=== PATIENT | female | born 1995 | race African-American/Black ===

== ENCOUNTER → 2019-11-19 08:24 | Outpatient (BNVA) | payer MEDICAID, SELFPAY | PROVIDERS: PCP Pediatrics; Referring Provider Pediatrics; Visit Provider Internal Medicine Gastroenterology | DX: R11.2 Nausea with vomiting, unspecified (principal); R19.4 Change in bowel habit | CPT/HCPCS: 99213 ==

== ENCOUNTER 2019-12-29 11:00 | Outpatient (RCR) | payer MEDICAID, SELFPAY ==
--- NOTE | 2020-01-26 13:26 | MHC.PT.DC ---
[facility] [place] [facility] [place] [facility] [place] [facility] [address] Maryjo Cortez [address] [phone] F: [phone] F: [phone] F: [phone] F: [phone] Physical Therapy Discharge Report Diagnosis: R knee pain Date of Surgery: NA Date of Evaluation: 11/04/19 Date of Discharge: 01/26/20 Treatments to Date: 4 Cancellations to Date: 2 No Shows to Date: 0 Discharge Status: Discharge Summary: Dispensed HEP importance of performing daily at the last tx session. Notable hip weakness, HS tightness. She has normal patella mobility and knee ROM. Patient reporting that she does not follow HEP at home so minimal changes noted. She came for 4 visits and cancelled additional. She was educated often on the importance of HEP in order to improve symptoms however little carryover was noted and minimal attendance to PT appointments. Kept chart open for 30 days prior to DC. DC to HEP at this time. Electronically signed by: Sari Emerson, PT Please sign and return to therapist. Thank you for your referral.
== END 2020-01-26 13:27 | disposition home or self-care (01) ==
LOC: HO.PTCHIC 11:00
PROVIDERS: PCP Pediatrics; Visit Provider Physician Assistant
DX: M22.2X1 Patellofemoral disorders, right knee (principal)
CPT/HCPCS: 97110

== ENCOUNTER 2020-01-13 10:25 | Day surgery (SDC) | payer MEDICAID, SELFPAY ==
[2020-01-10 09:53] VITALS: BMI 18.4
--- NOTE | 2020-01-12 10:13 | P.CONAN_ITS ---
HPI - Anesthesia Eval Consult details Narrative: 24yo F for Upper Endoscopy and Colonoscopy [facility] Past Medical History Medical History (Updated 01/25/20 @ 09:58 by Shady Irby MD) Nausea & vomiting Family History Family History (Updated 01/25/20 @ 09:08 by Pearl Erickson MA) Father Alive and well Mother Alive and well Surgical History Surgical History (Updated 01/25/20 @ 09:07 by Pearl Erickson MA) History of appendectomy History of colonoscopy Hx of endoscopy Social History Social History (Updated 01/25/20 @ 09:08 by Pearl Erickson MA) Alcohol intake: never Smoking Status: Never smoker Substance Use Type: Marijuana Meds Allergies Allergy/AdvReac Type Severity Reaction Status Date / Time No Known Allergies Allergy Verified 01/13/20 10:48 [No Known Allergies*] Home Medications Medication Instructions Recorded Confirmed Type famotidine 20 mg tablet 20 mg PO BEDTIME 11/19/19 01/10/20 History ondansetron 4 mg disintegrating 4 mg PO Q8H 11/19/19 01/10/20 History tablet Exam Exam Date and Time: January 12, 2020 1013 Height,Weight and Vital Signs: Height 5 ft 7 in Weight 53.524 kg Pertinent Lab Results Pertinent Lab Results: Laboratory Tests 08/27/19 08/27/19 09:56 09:56 WBC 3.9 L Hgb 12.4 Hct 37.9 Plt Count 211 Sodium 138 Potassium 3.8 Chloride 107 BUN 7 L Creatinine 0.75 Assessment and Plan Assessment Anesthesia Assessment: Chart Reviewed
[2020-01-13 10:47] VITALS: BP 106/62; PULSE 70; RESP 18; TEMP 36.6; O2SAT 99
[2020-01-13] MEDS: Lactated Ringers 1,000 ML 100 ML IVCONT (10:50)
[2020-01-13 10:53] LABS: UPreg QC Valid YES; Urine Pregnancy NEGATIVE (NEGATIVE)
--- NOTE | 2020-01-13 11:56 | HO.ANESPROP2 ---
[facility]LY [facility] Past Medical History Medical History Nausea & vomiting Family History Family History Father No problems noted. Mother No problems noted. Surgical History Surgical History History of appendectomy Social History Social History Alcohol intake: never Smoking Status: Never smoker Use of substances other than those prescribed or required for medical reasons: Yes Substance Use Type: Marijuana Substance Use Frequency: Occasionally Advance Directives: No Advance Directives Information Provided: No Advance Directives on File: No Meds Allergies Allergy/AdvReac Type Severity Reaction Status Date / Time No Known Allergies Allergy Verified 01/13/20 10:48 [No Known Allergies*] Home Medications Medication Instructions Recorded Confirmed Type famotidine 20 mg tablet 20 mg PO BEDTIME 11/19/19 01/10/20 History ondansetron 4 mg disintegrating 4 mg PO Q8H 11/19/19 01/10/20 History tablet Exam Exam Date and Time: January 13, 2020 1156 Height,Weight and Vital Signs: Height 5 ft 7 in Weight 53.524 kg Last Vital Signs Temp 98 F 01/13/20 10:47 Pulse 70 01/13/20 10:47 Resp 18 01/13/20 10:47 BP 106/62 01/13/20 10:47 Pulse Ox 99 01/13/20 10:47 Pertinent Lab Results Pertinent Lab Results: Laboratory Tests 01/13/20 10:31 Urine Test NEGATIVE Airway Mallampati Class: I TM Dist: >3cm Neck ROM: Full Loose/Missing/Broken Teeth: No Heart: RRR Lungs: CTA Assessment and Plan Assessment Anesthesia Assessment: Anesthesia Plan Discussed and Chart Reviewed Final Anesthetic Review NPO: Yes ASA Class: I Final Preanesthetic Review: Meds/Allgs Chart Reviewed, Consent Obtained/Reviewed and Anes Risks/Benef Reviewed Patient Risk: Low Procedure Risk: Intermediate Anesthetic Plan Anesthetic Plan: MAC: Disposition: Standard PACU
--- NOTE | 2020-01-13 12:06 | MHC.SHP ---
Pre-Procedural Eval Section B Chief Complaint: Nausea with Vomiting, Change in Bowl Habits Relevant Family History (Specify if Yes): No Relevant Social History: Other (specify) (THC use) Present Medications: see Short Stay Collaborative assessment Medical History: No relevant PMH History of Previous Operations: Relevant previous surgery/procedure and date(s) (appendectomy) Allergies: Allergies Allergy/AdvReac Type Severity Reaction Status Date / Time No Known Allergies Allergy Verified 01/13/20 10:48 [No Known Allergies*] Review of Systems Sugical H&P ROS: Negative: Constitution, Cardiovascular, Respiratory, Neurological, Psychiatric, Hem-Onc, Allergic/Immunologic, Gastrointestinal, Genitourinary, Musculoskeletal, Integumentary, Endocrine and Eyes/Ears/Nose/Throat Exam Surgical H&P Exam: Normal: HEENT, Normal: Heart, Normal: Lungs, Normal: Extremities, Normal: Abdomen, Normal: Skin and Normal: Neurological Plan Diagnosis/Plan: Unchanged Patient has been examined and remains a candidate for the planned procedure
--- NOTE | 2020-01-13 12:58 | PM.OP ---
Brief Operative Note Date of Service: 01/13/20 Pre-op diagnosis: altered bowel habit, nausea Post-op diagnosis: same Procedure: see op note Surgeon: Shady Irby MD Anesthesia: MAC Estimated blood loss (mL): 0 Condition: stable Disposition: PACU
--- NOTE | 2020-01-13 12:59 | W.PM.OPN ---
Operative Note Operative Note Date of Service: 01/13/20 Narrative: Operative Information Procedure Description: EGD, Colonoscopy FLEXIBLE TRANSORAL UPPER GASTROINTESTINAL ENDOSCOPY AND COLONOSCOPY PROCEDURE NOTE UPPER ENDOSCOPY Consent: Indications for the procedure and potential complications of bleeding, perforation, reaction to medications and missed diagnosis were discussed with the patient and informed consent was obtained. Instrument: Olympus GIF H 190 J mid size upper endoscope Monitoring: Vital signs and clinical assessment, continuous EKG monitoring, Pulse oximetry, Carbon Dioxide monitoring and blood pressure monitoring were done throughout the procedure. Procedure: The patient was placed in the left lateral decubitis position and pre-procedure medications were administered and a bite block was placed. The endoscope was inserted into the mouth and advanced under direct vision to the third part of duodenum. A careful inspection was made as the upper endoscope was withdrawn including a retroflexed examination of the proximal stomach; Findings and interventions are described below. Findings: Larynx:normal Esophagus: GE junction at 42 cm, diaphragm hiatus at 42 cm, mild LA grade A esophagitis, bx taken from random esophagus and GEJ in separate jars Stomach: mild patchy erythema. Biopsies were obtained. Grade 2 flap valve on retroflexed examination of the cardia. Duodenum: Normal bulb and descending duodenum, bx taken, mucosa easily traumatized Intervention: Biopsies as noted above COLONOSCOPY Instrument: Olympus variable stiffness pediatric scope 190L Colonoscopy Monitoring: Vital signs and clinical assessment, continuous EKG monitoring, Pulse oximetry, Carbon Dioxide monitoring and blood pressure monitoring were done throughout the procedure. Colon withdrawal time was 15 minutes. Procedure: The patient was placed in the left lateral decubitis position and pre-procedure medications were administered. After a digital rectal examination of the ano-rectum, the video colonoscope was inserted into the rectum and advanced through the colon to the cecum/TI. The colonoscope was slowly withdrawn in a retrograde panoramic fashion and the colon mucosa was carefully examined including a retroflexed view of the rectum. Findings and interventions are described below. Procedure Difficulty:easy Findings: Terminal Ileum-normal, bx taken Random bx taken from colon Cecum:normal, one biopsy site very easily traumatized with large defect and oozing, 2 clips used to close Ascending Colon: normal Transverse Colon -normal Descending Colon:normal Sigmoid Colon: normal Rectum: Retroflexion with small internal hemorrhoids, grade I Anorectum - normal Colon preparation: Almont Bowel Preparation Scale Right colon; 3 Transverse colon: 3 Left colon; 3 (0 = Unprepared colon segment with mucosa not seen due to solid stool that cannot be cleared. 1 = Portion of mucosa of the colon segment seen, but other areas of the colon segment not well seen due to staining, residual stool and/or opaque liquid. 2 = Minor amount of residual staining, small fragments of stool and/or opaque liquid, but mucosa of colon segment seen well. 3 = Entire mucosa of colon segment seen well with no residual staining, small fragments of stool or opaque liquid) Impression and Post Procedure Diagnosis: Endoscopy Findings: gastritis esophagitis Colonoscopy Findings: internal hemorrhoids easily traumatized mucosal tissue Plan: Await Pathology results Repeat Colonoscopy aged 45 years or earlier if clinically indicated High fiber diet leaflet avoid straining at stool, epsom salts and sitz bath, anusol supps or cream prn might switch to PPI see if get better control of sx might need to check for signs of symptoms of CTD like marfans, alesia danlos etc Above findings were reviewed with the patient and relevant handouts were provided if indicated.
[2020-01-13 13:05] VITALS: BP 90/48; PULSE 87; RESP 14; TEMP 36.6; O2SAT 100
[2020-01-13 13:20] VITALS: BP 98/55; PULSE 65; RESP 16; O2SAT 100
[2020-01-13 13:35] VITALS: BP 104/68; PULSE 69; RESP 16; TEMP 36.6; O2SAT 100
== END 2020-01-13 14:16 | disposition home or self-care (01) ==
PROVIDERS: Nurse Practitioner; PCP Pediatrics; Visit Provider Internal Medicine Gastroenterology
PROC: (CPT 45380; principal; 2020-01-13 11:40)
DX: R19.4 Change in bowel habit (principal); K64.0 First degree hemorrhoids; K29.50 Unspecified chronic gastritis without bleeding; K20.90 Esophagitis, unspecified without bleeding; K44.9 Diaphragmatic hernia without obstruction or gangrene; F12.90 Cannabis use, unspecified, uncomplicated; Z79.899 Other long term (current) drug therapy
CPT/HCPCS: 45380; 43239; 81025; 88305; 88342

== ENCOUNTER → 2020-01-25 09:05 | Outpatient (BNVA) | payer MEDICAID, SELFPAY | PROVIDERS: PCP Pediatrics; Referring Provider Pediatrics; Visit Provider Internal Medicine Gastroenterology | DX: Z76.89 Persons encountering health services in other specified circumstances (principal) ==

== ENCOUNTER → 2020-01-31 07:43 | Outpatient (REF) | payer MEDICAID, SELFPAY ==
--- NOTE | 2020-01-31 07:53 | NM_ITS ---
EXAMINATION: RADIONUCLIDE SOLID FOOD GASTRIC EMPTYING 4-HOUR STUDY CLINICAL INFORMATION: Early satiety. COMPARISON: No previous gastric emptying study is available for comparison. TECHNIQUE: A standard meal consisting of 4 oz of Egg Beaters brand equivalent tagged with 890 microcuries Tc-99m Sulfur Colloid, 8 oz water and 2 slices of toast with jelly was administered orally to the patient. Images were obtained using a dual head gamma camera in the anterior and posterior projections over of the stomach immediately post ingestion and at hourly intervals up to 4 hours post ingestion. The anterior and posterior counts at each time interval were averaged using the geometric mean and expressed as percentage of the immediate post ingestion counts. FINDINGS: There is good visualization of activity in the stomach immediately post ingestion. As the study progresses, there is good clearance of activity from the stomach and visualization of progressively increasing small bowel activity. By the end of the study, there is almost no retention noted in the stomach. Retention in the stomach at each time interval was: 1 hour 61% (normal 37%-90%) 2 hours 26% (normal 30%-60%) 3 hours 12% 4 hours 6% (normal 0%-10%) NM/NM gastric emptying study IMPRESSION: Normal 4-hour solid food gastric emptying study.
== END ==
LOC: HO.NUCMED 07:43
PROVIDERS: Visit Provider Internal Medicine Gastroenterology
DX: R68.81 Early satiety (principal); R11.2 Nausea with vomiting, unspecified
CPT/HCPCS: 78264; A9541

== ENCOUNTER → 2020-04-14 08:32 | Outpatient (BNVA) | payer MEDICAID, SELFPAY | PROVIDERS: PCP Pediatrics; Visit Provider Internal Medicine Gastroenterology | DX: Z13.89 Encounter for screening for other disorder (principal) | CPT/HCPCS: 99212 ==

== ENCOUNTER → 2020-04-28 08:41 | Outpatient (BNVA) | payer MEDICAID, SELFPAY | PROVIDERS: PCP Pediatrics; Visit Provider Internal Medicine Gastroenterology | DX: K29.70 Gastritis, unspecified, without bleeding (principal); K59.89 Other specified functional intestinal disorders | CPT/HCPCS: 91110 ==

== ENCOUNTER → 2020-07-14 10:26 | Outpatient (BNVA) | payer MEDICAID, SELFPAY | PROVIDERS: PCP Pediatrics; Visit Provider Internal Medicine Gastroenterology ==

== ENCOUNTER 2021-01-09 14:00 | Emergency (ER) | payer MEDICAID, SELFPAY ==
--- NOTE | ~2021-01-09 | CT_ITS ---
EXAMINATION: CT LUMBAR SPINE WITHOUT CONTRAST CLINICAL INFORMATION: Lower back/coccygeal pain. Fall while snowboarding. Pain in the lower back and right leg. COMPARISON: None available. TECHNIQUE: Multidetector helical imaging of the lumbar spine was obtained without intravenous contrast. Multiple axial reformats and coronal/sagittal reconstructions were created the technologist workstation for review. Hydroureter Dose Lowering DLP: 301 mGy-cm FINDINGS: Transitional vertebral anatomy. There is sacralization of L5 with fusion of the transverse processes with the sacral alae. Left convex curvature of the lumbar spine. Otherwise, normal anatomic alignment. No evidence of acute fracture or traumatic subluxation. The vertebral body heights are maintained. The intervertebral disc spaces are maintained. No suspicious lytic or sclerotic osseous lesions. No significant abnormalities of the paraspinal musculature. Small volume free fluid within the pelvis, within physiologic limits. Otherwise, limited evaluation of the intra-abdominal structures without significant abnormalities. The abdominal aorta is of normal contour and caliber. AXIAL SPINAL LEVELS: Normal annular contours. There is mild multilevel facet joint arthropathy. There is no neural foraminal stenosis. There is no demonstrated spinal canal stenosis. CT/CT lumbar spine wo con IMPRESSION: 1. Transitional vertebral anatomy. There is sacralization of L5. 2. No evidence of acute fracture or traumatic subluxation of the lumbar spine. 3. On this limited exam without intrathecal contrast, there is no demonstrated spinal canal stenosis or nerve root compression.
[2021-01-09 14:48] VITALS: BP 114/48; PULSE 89; RESP 16; TEMP 37.4; O2SAT 99; BMI 18.0
[2021-01-09] MEDS: Ibuprofen 800 MG TABLET PO (16:47)
[2021-01-09] MEDS: diazePAM 5 MG TABLET PO (16:47)
--- NOTE | 2021-01-09 17:15 | ED.BACK ---
HPI - Back Pain/Injury General Chief Complaint: Back Pain/Injury <SUSAN Newby - Last Filed: 01/09/21 18:12> Stated Complaint: low back pain <SUSAN Newby - Last Filed: 01/09/21 18:12> Time Seen by Provider: 01/09/21 16:27 <SUSAN Newby - Last Filed: 01/09/21 18:12> Source: patient and family <SUSAN Newby - Last Filed: 01/09/21 18:12> Mode of arrival: ambulatory <SUSAN Newby - Last Filed: 01/09/21 18:12> Limitations: no limitations <SUSAN Newby - Last Filed: 01/09/21 18:12> History of Present Illness HPI Narrative: 25-year-old female presenting to the ED with complaints of lower back pain/coccyx pain radiating to her right leg since February 2020 after she was snowboarding and she had a fall. Since then she has not been evaluated for this pain and is intermittently getting worse. She denies any fevers, chills, neck pain/stiffness, chest pain or shortness of breath, abdominal pain, dysuria, hematuria, abnormal vaginal discharge, weakness, saddle anesthesias, numbness or tingling, urinary/bowel incontinence or retention or any other symptoms complaints or concerns injuries at this time. <SUSAN Newby - Last Filed: 01/09/21 18:12> MD elicited complaint: back pain, back injury and fall <SUSAN eNwby - Last Filed: 01/09/21 18:12> Pertinent past history: recent trauma (In February 2020) <SUSAN Newby - Last Filed: 01/09/21 18:12> Onset (ago): month(s) <SUSAN Newby - Last Filed: 01/09/21 18:12> Timing: intermittent and progressively worsening <SUSAN Newby - Last Filed: 01/09/21 18:12> Severity: moderate <SUSAN Newby - Last Filed: 01/09/21 18:12> Similar Symptoms Previously: No <SUSAN Newby - Last Filed: 01/09/21 18:12> Quality: sharp and aching <SUSAN Newby - Last Filed: 01/09/21 18:12> Location: lumbar spine (/coccyx) <SUSAN Newby Last Filed: 01/09/21 18:12> Radiation: right upper leg and right leg below the knee <SUSAN Newby Last Filed: 01/09/21 18:12> Exacerbating factors: none <SUSAN Newby Last Filed: 01/09/21 18:12> Relieving factors: none <SUSAN Newby Last Filed: 01/09/21 18:12> Context: fall (While snowboarding she fell) <SUSAN Newby Last Filed: 01/09/21 18:12> Associated symptoms: denies other symptoms <SUSAN Newby Last Filed: 01/09/21 18:12> Treatments prior to arrival: other (She has tried [id number]-[id number]-[id number] medication no symptomatic relief) <SUSAN Newby Last Filed: 01/09/21 18:12> Work related injury: No <SUSAN Newby Last Filed: 01/09/21 18:12> Related Data Home Medications: Home Medications Medication Instructions Recorded Confirmed famotidine 20 mg tablet 20 mg PO BEDTIME 11/19/19 01/10/20 ondansetron 4 mg disintegrating 4 mg PO Q8H 11/19/19 01/10/20 tablet Previous Rx's Medication Instructions Recorded peg-electrolyte solution 420 gram 240 ml PO Q10M #4000 ml 11/19/19 oral solution (TriLyte With Flavor Packets) prochlorperazine maleate 5 mg 5 mg PO TID PRN #60 tab 11/19/19 tablet (Compazine) polyethylene glycol 3350 17 238 g PO ONCE 1 Days #238 g 04/18/20 gram/dose oral powder (Miralax) pantoprazole 40 mg tablet,delayed 40 mg PO BID #60 tab 07/24/20 release diazepam 10 mg tablet (Valium) 10 mg PO TID PRN #10 tab 01/09/21 ibuprofen 800 mg tablet 800 mg PO Q8H PRN #14 tab 01/09/21 prednisone 20 mg tablet 40 mg PO DAILY 5 Days #10 tab 01/09/21 <SUSAN Newby - Last Filed: 01/09/21 18:12> Allergies/Adverse Reactions: Allergies Allergy/AdvReac Type Severity Reaction Status Date / Time No Known Allergies Allergy Verified 07/14/20 10:27 [No Known Allergies*] <SUSAN Newby - Last Filed: 01/09/21 18:12> Review of Systems Review of Systems: Constitutional : No trauma, No Weight loss, No Fever, No Chills, ENT/Mouth : No Hearing loss, No Ear Pain, No Nasal Congestion, No Sinus Pain, No Hoarseness, No sore throat, No Rhinorrhea, No Swallowing Difficulty Cardiovascular : No Chest Pain, No SOB Respiratory : No Cough, No Dyspnea Gastrointestinal : No Nausea, No Vomiting, No Diarrhea, No abdominal Pain, No Hematochezia, No Melena Genitourinary : No Dysuria, No Urinary Frequency, No Hematuria, No Urinary or Bowel Incontinence/retention Musculoskeletal : + Back pain, No neck pain, No joint stiffness, No joint swelling Skin : No Skin Lesions, No rash or signs of infection Neuro : No Weakness, No radiation, No Numbness, No Paresthesias, No headache, no loss of bowel or bladder incontinence, no saddle anesthesia, Focal weakness, No radiation Denies history of IV drug usage. <SUSAN Newby - Last Filed: 01/09/21 18:12> Yes all other systems are reviewed and are negative <SUSAN Newby - Last Filed: 01/09/21 18:12> PMF Past Medical History Attestation statement: The following information was validated with the patient. <SUSAN Newby - Last Filed: 01/09/21 18:12> Medical History: Medical History Nausea & vomiting <SUSAN Newby - Last Filed: 01/09/21 18:12> Surgical History: Surgical History History of appendectomy History of colonoscopy Hx of endoscopy <SUSAN Newby Last Filed: 01/09/21 18:12> Family History Family History: Family History Father Alive and well Mother Alive and well <SUSAN Newby - Last Filed: 01/09/21 18:12> Social History Social History: Social History Household Members: Spouse Alcohol intake: current Alcohol intake frequency: does not drink Substance Use Type: Marijuana Advance Directives: No Advance Directives Information Provided: Yes <SUSAN Newby - Last Filed: 01/09/21 18:12> Physical Exam Vital Signs: Vital Signs: Last Vital Signs Temp 98.9 F 01/09/21 17:24 Pulse 85 01/09/21 17:24 Resp 20 01/09/21 17:24 BP 106/50 L 01/09/21 17:24 Pulse Ox 98 01/09/21 17:24 Body Mass Index 18.0 vital signs have been reviewed as normal and appeared to be correct. Blood pressure normal. Heart rate normal. Respiration rate normal. Temperature normal. Oxygen saturation normal. <SUSAN Newby - Last Filed: 01/09/21 18:12> Vital Signs: Last Vital Signs Temp 98.9 F 01/09/21 17:24 Pulse 85 01/09/21 17:24 Resp 20 01/09/21 17:24 BP 106/50 L 01/09/21 17:24 Pulse Ox 98 01/09/21 17:24 Body Mass Index 18.0 <SUSAN Tesfaye - Last Filed: 01/09/21 19:05> Appearance: Alert. Oriented X3. No acute distress. Head: Normal external exam. Normocephalic. Atraumatic. No Levi signs noted. No raccoon eyes noted Eyes: PERRLA. EOMI. Conjunctiva and sclera normal. Eyelids normal. ENT: EAC normal. TM's Normal. Pharynx normal. Uvula midline. Moist mucous membranes. No trismus noted. No drooling noted. No muffled voice noted. Neck: Normal inspection. Neck supple. FROM. No adenopathy. Thyroid Normal. No meningeal signs. No neck mass noted. CVS: Normal heart rate and rhythm. Heart sound normal. No murmurs noted. Pulses normal throughout. Respiratory: No respiratory distress. Painless inspiration. Breath sounds normal. No wheezes/rales/rhonchi noted. Chest nontender. No accessory muscle usage noted or decreased air movement noted. Abdomen: Soft and nontender. Bowel sounds normal in all 4 quadrants. No distention noted. No organomegaly noted. No visible injury noted. Back: No CVA tenderness. Full range of motion noted. No obvious deformities, or edema. Mild para-spinal muscular tenderness from lumbar region to coccyx. Full ROM in back and lower extremities. 5/5 strength hip extension/flexion, abduction, adduction. Mild Lumbar pain with hip flexion against resistance. Straight leg raise test negative on right; Straight leg raise test negative on left; Reflexes normal ankle and knee bilaterally; EHL motor strength normal bilaterally. No rashes/lesion/induration/fluctuance or signs infection noted. Skin: Skin warm and dry. Normal skin color. Normal skin turgor. No rashes/lesions/lacerations noted. Extremities: No lower extremity edema. Extremities exhibit normal range of motion. Extremities nontender. Neuro: Oriented X 3. No motor deficit. No sensory deficit. Reflexes normal. Patient has a normal steady gait. <SUSAN Newby Last Filed: 01/09/21 18:12> Course Course Course Narrative: 16:35pm - Pt c likely muscular pain, but could be herniated disc. Neuro exam shows no deficits. Not cauda equina syndrome. Not c/w AAA/epidural abscess/dissection.No high risk Hx (Incont, fever, immunosupp, recent surgery/LP, coag, signif trauma, wt loss, puls mass, hx/o Ca, TB, or IVDU) to warrant MRI. Not c/w Pyelo/UTI/kidney stone. Due to patient having a fall and not being evaluated and having symptoms for almost a year we will obtain a CT scan of lumbar spine then re-evaluate. <SUSAN Newby Last Filed: 01/09/21 18:12> Reevaluation(s) Reevaluation #1: - sign out to SERVANDO Archibald PENDING CT SCAN RESULTS <SUSAN Newby Last Filed: 01/09/21 18:12> Time: 18:12 <SUSAN Newby Last Filed: 01/09/21 18:12> Reevaluation #2: CT scan normal. Negative for any fracture. Safe for discharge. Patient ate food in the ER walked around. <SUSAN Tesfaye - Last Filed: 01/09/21 19:05> MDM - Back Pain/Injury Medical Records Attestation: I reviewed the patient's medical records. <SUSAN Newby Last Filed: 01/09/21 18:12> Discharge Plan Discharge Clinical Impression: Fall, Back pain <SUSAN Newby Last Filed: 01/09/21 18:12> Patient Disposition: Home, Self-Care <SUSAN Newby Last Filed: 01/09/21 18:12> Instructions: Back Pain (ED) <SUSAN Newby Last Filed: 01/09/21 18:12> Additional Instructions: Your CT scan came back normal and negative for any fracture. Please follow-up with your primary care provider. Return to the ED for any urinary/bowel incontinence, numbness/tingling of lower extremities, fever, chills, right lower extremity, abdominal pain, nausea, vomiting, chest pain, shortness of breath, dysuria, hematuria, flank pain, or any other concerning symptoms. <SUSAN Newby Last Filed: 01/09/21 18:12> Prescriptions: New ibuprofen 800 mg tablet 800 mg PO Q8H PRN (Reason: pain) Qty: 14 RF: 0 prednisone 20 mg tablet 40 mg PO DAILY 5 Days Qty: 10 RF: 0 diazepam [Valium] 10 mg tablet 10 mg PO TID PRN (Reason: muscle spasm) Qty: 10 RF: 0 No Action pantoprazole 40 mg tablet,delayed release (DR/EC) 40 mg PO BID Qty: 60 RF: 5 ondansetron 4 mg tablet,disintegrating 4 mg PO Q8H RF: 0 famotidine 20 mg tablet 20 mg PO BEDTIME RF: 0 prochlorperazine maleate [Compazine] 5 mg tablet 5 mg PO TID PRN (Reason: nausea and vomiting) Qty: 60 RF: 3 peg-electrolyte soln [TriLyte With Flavor Packets] 420 gram recon soln 240 ml PO Q10M Qty: 4000 RF: 0 polyethylene glycol 3350 [Miralax] 17 gram/dose powder 238 g PO ONCE 1 Days Qty: 238 RF: 0 <SUSAN Newby Last Filed: 01/09/21 18:12> Referrals: Veronica Carney MD [Primary Care Provider] - 2 days <SUSAN Newby - Last Filed: 01/09/21 18:12> Stand Alone Forms: Work/School Release <SUSAN Newby - Last Filed: 01/09/21 18:12> Print Language: Northern Irish <SUSAN Newby - Last Filed: 01/09/21 18:12>
[2021-01-09 17:24] VITALS: BP 106/50; PULSE 85; RESP 20; TEMP 37.2; O2SAT 98
== END 2021-01-09 19:19 | disposition home or self-care (01) ==
PROVIDERS: Emergency Provider Emergency Medicine Emergency Medical Services; PCP Pediatrics
DX: M54.50 Low back pain, unspecified (principal); Z91.81 History of falling
CPT/HCPCS: 72131; 99284

== ENCOUNTER → 2021-01-12 10:15 | Outpatient (BNVA) | payer MEDICAID, SELFPAY | PROVIDERS: PCP Pediatrics; Referring Provider Pediatrics; Visit Provider Internal Medicine Gastroenterology | DX: K21.9 Gastro-esophageal reflux disease without esophagitis (principal); R11.2 Nausea with vomiting, unspecified | CPT/HCPCS: 99212 ==

== ENCOUNTER 2021-09-28 07:37 | Outpatient (REF) | payer MEDICAID, SELFPAY ==
--- NOTE | ~2021-09-28 | XR_ITS ---
EXAMINATION: XR KNEE-BILATERAL CLINICAL INFORMATION: Right knee pain. COMPARISON: Radiographs of the right knee done on 06/02/2019. TECHNIQUE: Upright frontal views of both knees and lateral and patellar views of the right knee were obtained. FINDINGS: Left knee: The bony alignment is intact. The cortices are intact. Soft tissues are unremarkable. Right knee: The bony alignments are intact. The cortices are intact. Nonspecific soft tissue thickening is noted in the region of the distal quadriceps tendon including its insertion to the superior pole of the patella, may represent soft tissue injury. No evidence of any pleural effusion. XR/XR knee RT 2V IMPRESSION: 1. Frontal view only of the left knee appears unremarkable. 2. Nonspecific soft tissue thickening in the region of the distal right quadriceps tendon including its insertion to the superior pole of the patella, may represent soft tissue injury. Otherwise unremarkable.
--- NOTE | ~2021-09-28 | XR_ITS ---
EXAMINATION: XR KNEE-BILATERAL CLINICAL INFORMATION: Right knee pain. COMPARISON: Radiographs of the right knee done on 06/02/2019. TECHNIQUE: Upright frontal views of both knees and lateral and patellar views of the right knee were obtained. FINDINGS: Left knee: The bony alignment is intact. The cortices are intact. Soft tissues are unremarkable. Right knee: The bony alignments are intact. The cortices are intact. Nonspecific soft tissue thickening is noted in the region of the distal quadriceps tendon including its insertion to the superior pole of the patella, may represent soft tissue injury. No evidence of any pleural effusion. XR/XR knee standing BI IMPRESSION: 1. Frontal view only of the left knee appears unremarkable. 2. Nonspecific soft tissue thickening in the region of the distal right quadriceps tendon including its insertion to the superior pole of the patella, may represent soft tissue injury. Otherwise unremarkable.
== END 2021-09-28 07:38 | disposition home or self-care (01) ==
LOC: HO.HOSX 07:37
PROVIDERS: Visit Provider Physician Assistant
DX: M22.2X1 Patellofemoral disorders, right knee (principal); M76.899 Other specified enthesopathies of unspecified lower limb, excluding foot; M25.562 Pain in left knee
CPT/HCPCS: 73560; 73565; 99212

== ENCOUNTER 2022-06-02 10:00 | Emergency (ER) | payer MEDICAID, SELFPAY ==
--- NOTE | ~2022-06-02 | US_ITS ---
EXAMINATION: US ABDOMEN LIMITED CLINICAL INFORMATION: Right upper quadrant pain. COMPARISON: Previous MRI of the abdomen and abdominal ultrasound September 2019 TECHNIQUE: Real-time imaging of the right upper quadrant abdominal viscera. FINDINGS: PANCREAS: Normal. LIVER: Normal. The liver is normal in size. The liver contour is normal. Parenchymal echogenicity is normal. No focal hepatic lesion. There is no intrahepatic biliary duct dilatation seen. GALLBLADDER: Normal. The gallbladder is physiologically distended without evidence of stones, sludge, polyps, wall thickening or pericholecystic fluid. COMMON BILE DUCT: Normal in caliber measuring 0.2 cm in diameter. RIGHT KIDNEY: There are 2 stones measuring 7 x 4 x 5 mm in the midpole and 5 x 3 x 3 mm in the upper pole. No hydronephrosis. No focal parenchymal lesions. The kidney measures 11.6 cm in maximum dimension. FREE FLUID: None. US/US abdomen limited IMPRESSION: Right renal stones.
[2022-06-02 10:04] VITALS: BP 107/88; PULSE 83; RESP 18; TEMP 36.4; O2SAT 100; BMI 18.4
[2022-06-02 10:14] VITALS: BP 118/68; PULSE 73; RESP 17; TEMP 37.1; O2SAT 98
--- NOTE | 2022-06-02 11:21 | PC.NURSE ---
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 no orders at this time.
--- NOTE | 2022-06-02 12:25 | ED_ITS ---
HPI - Abdominal Pain General Chief Complaint: Abdominal Pain Stated Complaint: Abd pain/N/V Time Seen by Provider: 06/02/22 11:30 Source: patient Mode of arrival: ambulatory Limitations: no limitations History of Present Illness HPI narrative: 26-year-old female no significant past medical history presents to the emergency department with complaints of mid/lower abdominal pain, nausea, vomiting, and diarrhea since yesterday. She reports she ate [employer] and soon after began feeling unwell. She reports she last vomited earlier this morning and denies hematemesis and that her last bowel movement was here in this emergency department around 1130. She denies chance of and reports her last menses was 2-3 weeks ago. She denies melena or hematochezia. She otherwise denies chest pain, shortness of breath, paresthesias, weakness, difficulty without ROM, headache, vision changes, dysuria, hematuria, abnormal vaginal discharge. Pertinent positives and negatives discussed in HPI. MD elicited complaint: abdominal pain Related Data Home Medications Medication Instructions Recorded Confirmed famotidine 20 mg tablet 20 mg PO BEDTIME 11/19/19 01/12/21 ondansetron 4 mg disintegrating 4 mg PO Q8H 11/19/19 01/12/21 tablet Previous Rx's Medication Instructions Recorded peg-electrolyte solution 420 gram 240 ml PO Q10M #4,000 mL 11/19/19 oral solution (TriLyte With Flavor Packets) prochlorperazine maleate 5 mg 5 mg PO TID PRN nausea and 11/19/19 tablet (Compazine) vomiting #60 tabs polyethylene glycol 3350 17 238 g PO ONCE 1 day #238 grams 04/18/20 gram/dose oral powder (Miralax) diazepam 10 mg tablet (Valium) 10 mg PO TID PRN muscle spasm #10 01/09/21 tabs ibuprofen 800 mg tablet 800 mg PO Q8H PRN pain #14 tabs 01/09/21 prednisone 20 mg tablet 40 mg PO DAILY rash 5 days #10 tabs 01/09/21 colesevelam 625 mg tablet (WelChol) 1,250 mg PO DAILY #60 tabs 03/20/21 pantoprazole 40 mg tablet,delayed 40 mg PO BID #60 tabs 05/29/21 release ondansetron 4 mg disintegrating 4 mg PO Q6H PRN nausea and 06/02/22 tablet vomiting #10 tabs Allergies Allergy/AdvReac Type Severity Reaction Status Date / Time No Known Allergies Allergy Verified 06/02/22 10:04 [No Known Allergies*] Review of Systems Review of Systems Yes all other systems are reviewed and are negative [facility] Past Medical History Medical History Nausea & vomiting Surgical History History of appendectomy History of colonoscopy Hx of endoscopy Family History Family History Father Alive and well Mother Alive and well Social History Social History Household Members: Spouse Alcohol intake: never Smoked in Last 30 Days: No Use of substances other than those prescribed or required for medical reasons: Yes Substance Use Type: Marijuana Substance Use Frequency: Chronic Longstanding Substance Use Frequency Other:: before bed/prior to eating Advance Directives: No Advance Directives Information Provided: No Physical Exam ED Vital Signs: Vital Signs - 24 hr 06/02/22 10:04 06/02/22 10:14 06/02/22 13:05 Temperature 97.6 F 98.7 F Pulse Rate 83 73 70 Respiratory Rate 18 17 16 Blood Pressure 107/88 118/68 104/68 Pulse Oximetry 100 98 100 Oxygen Delivery Method Room Air Room Air Room Air 06/02/22 14:00 Temperature 98.4 F Pulse Rate 64 Respiratory Rate 12 Blood Pressure 100/67 Pulse Oximetry 100 Oxygen Delivery Method Room Air BMI result Body Mass Index 18.4 Nursing notes and vital signs reviewed. GENERAL APPEARANCE: A&0 x 4, generally well appearing, no acute distress HENMT: Normal to inspection, atraumatic, face symmetrical. Normal external ears, nose, and oropharynx clear. EYE: PERRLA, EOM intact, structures appear normal NECK: Supple without lymphadenopathy. No stiffness or restricted ROM. CHEST: Normal to inspection HEART: Normal rate and regular rhythm, normal S1/S2, no M/R/G LUNGS: LS CTA, moving air well. Able to speak in complete sentences. No crackles, wheezes, or rhonchi auscultated ABDOMEN: Soft, nondistended. RLQ and LLQ tender to palpation. Normal bowel sounds noted BACK: No CVAT, no obvious deformity EXTREMITIES: Moving all extremities without difficulty. No cyanosis, clubbing, or edema. Normal capillary refill. NEUROLOGICAL: Alert and oriented, moving all 4 extremities with equal strength. CN not formally tested but appearing grossly intact. Observed to ambulate with normal gait. Cognition normal SKIN: Warm and dry without any lesions, rash, or visible sores PSYCH: Cooperative, normal affect, normal thought process Medical Decision Making Medical Decision Making [facility] Narrative: 1145: Old records reviewed for previous imaging, lab studies, ECGs, or notes. Danielle corrales was assessed the emergency department. No acute distress or toxicity noted. Patient is A&O x4, LS CTA, NEW x4 with good strength. Based on HPI and PE plan for UA to rule out urinary tract infection causing symptoms, Upreg, blood work, and 1 L normal saline bolus for fluid replacement due to vomiting and diarrhea. 1300: Hematology unremarkable with no signs of leukocytosis, anemia, or th rombocytopenia. Chemistries showing elevated total bilirubin with normal LFTs. Add on direct bili and ultrasound right upper quadrant ordered to rule out biliary colic as cause of patient's pain. 1430: I independently interpreted the ultrasound of the right upper quadrant as negative for cholecystitis or cholelithiasis. To incidental kidney stones were noted in the mid and upper pole of the right kidney without hydronephrosis and are most likely not related to patient's complaining symptoms of nausea, vomiting, diarrhea, and abdominal pain. Patient symptoms consistent with gastroenteritis most likely due to either gastrointestinal virus or food-borne illness based on nausea, vomiting, and diarrhea with a low suspicion for hydronephrosis, SBO, perforation, UTI, ovarian cyst or torsion. 1450: On re-evaluation patient reports moderate relief of symptoms. Anti nausea medication prescribed patient preferred pharmacy. Patient directed to use as prescribed. Patient is safe for discharge at this time with plan for [id number] Tylenol and/or NSAID such as ibuprofen or naproxen for fever/discomfort with dosing as per packaging. HPI, PE, diagnostics, and plan discussed with patient and family with no unanswered questions at this time. Strict return precautions given to return to the emergency department with new, worsening, or concerning emergent symptoms. Recommended to follow-up with there primary care provider in 24-48 hours for further treatment and management. Differential Diagnosis Differential Diagnoses: The differential diagnosis associated with the presentation includes Gastroenteritis Lab Data MDM Lab Attestation statement: I reviewed the patient's lab results. 06/02/22 12:41 06/02/22 12:41 Labs: Lab Results 06/02/22 06/02/22 06/02/22 Range/Units 12:41 12:41 13:54 WBC 4.5 L (4.8-10.8) X10*3/uL RBC 4.34 (4.20-5.50) X10*6/uL Hgb 13.2 (12.0-16.0) g/dl Hct 39.8 (37.0-47.0) % MCV 91.7 (80.0-98.0) fL MCH 30.4 (27.0-33.0) pg MCHC 33.2 (31.0-35.0) g/dl RDW 12.4 (11.0-16.0) % Plt Count 211 (160-400) X10*3/uL MPV 9.4 (9.4-12.3) fL Immature Gran % (Auto) 0.2 (0.0-0.4) % Neut % (Auto) 75.9 H (45-73) % Lymph % (Auto) 17.9 L (20-40) % [place] % (Auto) 4.5 (2-11) % Eos % (Auto) 1.1 (0-4) % Baso % (Auto) 0.4 (0-2) % Lymph # (Auto) 0.8 L (1.2-4.9) X10*3/uL [place] # (Auto) 0.2 (0.1-1.2) X10*3/uL Eos # (Auto) 0.1 (0.0-0.4) X10*3/uL Baso # (Auto) 0.0 (0.0-0.2) X10*3/uL Abs Immat Gran (auto) 0.01 (0.00-0.03) X10*3/uL Absolute Neuts (auto) 3.4 (2.0-8.3) x10*3/uL Absolute Nucleated RBC 0.000 (0.0-0.012) X10*3/uL Nucleated RBC % (auto) 0.0 (0.0-0.2) /100WBC Sodium 138 (135-145) mmol/L Potassium 4.0 (3.3-5.1) mmol/L Chloride 105 (96-108) mmol/L Carbon Dioxide 26 (22-29) mmol/L Anion Gap 11 L (12-20) BUN 10 (9-16) mg/dL Creatinine 0.69 (0.5-1.4) mg/dL Estim Creat Clear Calc 103.2 Estimated GFR > 60 Random Glucose 96 (60-115) mg/dL Calcium 9.4 (8.4-10.2) mg/dL Magnesium 1.9 (1.6-2.6) mg/dL Total Bilirubin 2.3 H (0.0-1.0) mg/dL AST 20 (5-31) U/L ALT 15 (0-31) U/L Alkaline Phosphatase 55 (39-117) U/L Total Protein 7.3 (6.5-8.0) g/dL Albumin 4.3 (3.5-5.0) g/dL Urine Color Yellow Urine Appearance Cloudy Urine pH 8.5 (5.0-9.0) Ur Specific [place] 1.025 (1.005-1.025) Urine Protein Negative (Neg-Trace) mg/dL Urine Glucose (UA) Negative (Negative) mg/dL Urine Ketones 15 (Negative) mg/dL Urine Blood Negative (Negative) Urine Nitrite Negative (Negative) Ur Leukocyte Esterase Negative (Negative) Urine RBC 0-2 (0-2) /HPF Urine WBC 0-5 (0-5) /HPF Ur Squamous Epith Cells 3-5 (0-2) /HPF Urine Bacteria None Seen (None Seen) Hyaline Casts 0-2 (0-2) /LPF Urine Test (NEGATIVE) 06/02/22 Range/Units 13:54 WBC (4.8-10.8) X10*3/uL RBC (4.20-5.50) X10*6/uL Hgb (12.0-16.0) g/dl Hct (37.0-47.0) % MCV (80.0-98.0) fL MCH (27.0-33.0) pg MCHC (31.0-35.0) g/dl RDW (11.0-16.0) % Plt Count (160-400) X10*3/uL MPV (9.4-12.3) fL Immature Gran % (Auto) (0.0-0.4) % Neut % (Auto) (45-73) % Lymph % (Auto) (20-40) % [place] % (Auto) (2-11) % Eos % (Auto) (0-4) % Baso % (Auto) (0-2) % Lymph # (Auto) (1.2-4.9) X10*3/uL [place] # (Auto) (0.1-1.2) X10*3/uL Eos # (Auto) (0.0-0.4) X10*3/uL Baso # (Auto) (0.0-0.2) X10*3/uL Abs Immat Gran (auto) (0.00-0.03) X10*3/uL Absolute Neuts (auto) (2.0-8.3) x10*3/uL Absolute Nucleated RBC (0.0-0.012) X10*3/uL Nucleated RBC % (auto) (0.0-0.2) /100WBC Sodium (135-145) mmol/L Potassium (3.3-5.1) mmol/L Chloride (96-108) mmol/L Carbon Dioxide (22-29) mmol/L Anion Gap (12-20) BUN (9-16) mg/dL Creatinine (0.5-1.4) mg/dL Estim Creat Clear Calc Estimated GFR Random Glucose (60-115) mg/dL Calcium (8.4-10.2) mg/dL Magnesium (1.6-2.6) mg/dL Total Bilirubin (0.0-1.0) mg/dL AST (5-31) U/L ALT (0-31) U/L Alkaline Phosphatase (39-117) U/L Total Protein (6.5-8.0) g/dL Albumin (3.5-5.0) g/dL Urine Color Urine Appearance Urine pH (5.0-9.0) Ur Specific [place] (1.005-1.025) Urine Protein (Neg-Trace) mg/dL Urine Glucose (UA) (Negative) mg/dL Urine Ketones (Negative) mg/dL Urine Blood (Negative) Urine Nitrite (Negative) Ur Leukocyte Esterase (Negative) Urine RBC (0-2) /HPF Urine WBC (0-5) /HPF Ur Squamous Epith Cells (0-2) /HPF Urine Bacteria (None Seen) Hyaline Casts (0-2) /LPF Urine Test NEGATIVE (NEGATIVE) Independent Interpretation I performed an independent interpretation of an: Ultrasound Radiology Impression Discussion of test interpretation with radiology: I have reviewed the radiologist's reading. Medications Administered Discontinued Medications Generic Name Dose Route Start Last Admin Trade Name Freq PRN Reason Stop Dose Admin Sodium Chloride 1,000 mls @ 999 mls/hr 06/02/22 12:00 06/02/22 14:03 Ns IV 06/02/22 13:00 Infused .Q1H1M KALI Infusion Ketorolac Tromethamine 15 mg 06/02/22 12:53 06/02/22 13:07 Ketorolac Tromethamine 15 Mg/Ml Vial IVPUSH 06/02/22 12:54 15 mg ONCE ONE Administration Ondansetron HCl 4 mg 06/02/22 12:53 06/02/22 13:07 Ondansetron Hcl 4 Mg/2 Ml Vial IVPUSH 06/02/22 12:54 4 mg ONCE ONE Administration Discharge Plan Discharge Clinical Impression: Gastroenteritis, Right nephrolithiasis Patient Disposition: Home, Self-Care Instructions: Kidney Stones (ED), Gastroenteritis (ED), Acute Nausea and Vomiting (ED) Additional Instructions: Your seen in the emergency department for concerns of nausea, vomiting, and abdominal pain. Your blood work showed a mildly elevated bilirubin. As a result and ultrasound was conducted which showed 2 non obstructing kidney stones and no signs of gallbladder disease. The stones are seen in the kidney and are not likely to be causing your nausea, vomiting, and abdominal pain. Your symptoms are most likely related to a gastrointestinal virus or food-borne illness. Pain medication and antinausea medication were given to you here in the emergency department with moderate reduction symptoms. Antinausea medication has been prescribed to preferred pharmacy. Please take as directed. You are safe for discharge at this time with plan for management of fever or discomfort with [id number] Tylenol and/or NSAID such as ibuprofen or naproxen with dosing as per packaging. Please return to the emergency department with new, worsening, or concerning emergent symptoms. Recommended to follow-up with your primary care provider in 24-48 hours for further treatment and management. Thank you for choosing [facility]. Prescriptions: New ondansetron 4 mg tablet,disintegrating 4 mg PO Q6H PRN (Reason: nausea and vomiting) Qty: 10 0RF No Action colesevelam [WelChol] 625 mg tablet 1,250 mg PO DAILY Qty: 60 1RF pantoprazole 40 mg tablet,delayed release (DR/EC) 40 mg PO BID Qty: 60 5RF ibuprofen 800 mg tablet 800 mg PO Q8H PRN (Reason: pain) Qty: 14 0RF prednisone 20 mg tablet 40 mg PO DAILY 5 Days Qty: 10 0RF diazepam [Valium] 10 mg tablet 10 mg PO TID PRN (Reason: muscle spasm) Qty: 10 0RF ondansetron 4 mg tablet,disintegrating 4 mg PO Q8H famotidine 20 mg tablet 20 mg PO BEDTIME prochlorperazine maleate [Compazine] 5 mg tablet 5 mg PO TID PRN (Reason: nausea and vomiting) Qty: 60 3RF peg-electrolyte soln [TriLyte With Flavor Packets] 420 gram recon soln 240 ml PO Q10M Qty: 4000 0RF Rx Instructions: until fecal effluent is clear; do not exceed a total volume of 2,000 mL polyethylene glycol 3350 [Miralax] 17 gram/dose powder 238 g PO ONCE 1 Days Qty: 238 0RF Rx Instructions: Take as directed by mouth, bowel prep Referrals: Veronica Carney MD [Primary Care Provider] - Damion Arambula MD [Physician] - Stand Alone Forms: Work/School Release Print Language: Russian
[2022-06-02] MEDS: 0.9 % Sodium Chloride 1,000 ML 999 ML IV (12:42)
--- NOTE | 2022-06-02 12:45 | PC.NURSE ---
pt a&ox3, 20G IV placed right AC, labs drawn, 1L NS running. pt reporting 8/10 lower abd pain, provider notified. pt aware of need for urine sample. no new orders at this time.
[2022-06-02 12:46] LABS: MANUAL DIFF FLAG NO
[2022-06-02 12:48] LABS: Basophils Percent Auto 0.4 % (0-2); Eosinophils Absolute Auto 0.1 X10*3/uL (0.0-0.4); Eosinophils Percent Auto 1.1 % (0-4); Hematocrit 39.8 % (37.0-47.0); Hemoglobin 13.2 g/dl (12.0-16.0); Imm Gran Abs Auto 0.01 X10*3/uL (0.00-0.03); Imm Gran Pct Auto 0.2 % (0.0-0.4); Lymphocytes Absolute Auto 0.8 X10*3/uL (1.2-4.9); Lymphocytes Percent Auto 17.9 % (20-40); Mean Corpuscular HGB Conc 33.2 g/dl (31.0-35.0); Mean Corpuscular Hemoglobin 30.4 pg (27.0-33.0); Mean Corpuscular Volume 91.7 fL (80.0-98.0); Mean Platelet Volume 9.4 fL (9.4-12.3); Monocytes Absolute Auto 0.2 X10*3/uL (0.1-1.2); Monocytes Percent Auto 4.5 % (2-11); Neutrophils Absolute Auto 3.4 x10*3/uL (2.0-8.3); Neutrophils Percent Auto 75.9 % (45-73); Platelet Count 211 X10*3/uL (160-400); Red Blood Count 4.34 X10*6/uL (4.20-5.50); Red Cell Distribution Width 12.4 % (11.0-16.0); White Blood Count 4.5 X10*3/uL (4.8-10.8)
[2022-06-02 13:04] LABS: Alanine Aminotransferase 15 U/L (0-31); Albumin Level 4.3 g/dL (3.5-5.0); Alkaline Phosphatase 55 U/L (39-117); Anion Gap 11 (12-20); Aspartate Amino Transferase 20 U/L (5-31); Bilirubin Total 2.3 mg/dL (0.0-1.0); Blood Urea Nitrogen 10 mg/dL (9-16); Calcium 9.4 mg/dL (8.4-10.2); Carbon Dioxide 26 mmol/L (22-29); Chloride 105 mmol/L (96-108); Creatinine Clr Calc Pharmacy 103.2; Estimated Glomerular Filt Rate > 60; Glucose Random 96 mg/dL (60-115); Magnesium 1.9 mg/dL (1.6-2.6); Sodium 138 mmol/L (135-145); Total Protein 7.3 g/dL (6.5-8.0)
[2022-06-02 13:05] VITALS: BP 104/68; PULSE 70; RESP 16; O2SAT 100
[2022-06-02] MEDS: Ketorolac Tromethamine 15 MG/ML VIAL IVPUSH (13:07)
[2022-06-02] MEDS: ondansetron HCL 4 MG/2 ML VIAL IVPUSH (13:07)
[2022-06-02 14:00] VITALS: BP 100/67; PULSE 64; RESP 12; TEMP 36.9; O2SAT 100
[2022-06-02 14:07] LABS: Appearance Urine Cloudy; Color Urine Yellow; Glucose Urine UA Negative (Negative); Leukocyte Esterase Urine Negative (Negative); Nitrite Urine Negative (Negative); PH 8.5 (5.0-9.0); Specific Gravity - Urine 1.025 (1.005-1.025); Urine Blood Negative (Negative); Urine Ketones 15 mg/dL (Negative); Urine Protein Negative (Neg-Trace)
[2022-06-02 14:08] LABS: Urine Pregnancy NEGATIVE (NEGATIVE)
[2022-06-02 14:09] LABS: UPreg QC Valid YES
[2022-06-02 14:13] LABS: Bacteria Urine None Seen (None Seen); Hyaline Casts Urine 0-2 /LPF (0-2); RBC Urine 0-2 /HPF (0-2); WBC Urine 0-5 /HPF (0-5)
== END 2022-06-02 15:19 | disposition home or self-care (01) ==
PROVIDERS: Nurse Practitioner Family; Emergency Provider Emergency Medicine Emergency Medical Services; PCP Pediatrics
DX: K52.9 Noninfective gastroenteritis and colitis, unspecified (principal); N20.0 Calculus of kidney; R11.2 Nausea with vomiting, unspecified; Z79.899 Other long term (current) drug therapy
CPT/HCPCS: 36415; 76705; 80053; 81001; 81025; 83735; 85025; 96361; 96374; 96375; 99284; J1885; J2405

== ENCOUNTER 2022-06-04 08:58 | Emergency (ER) | payer MEDICAID, SELFPAY ==
[2022-06-04 09:09] VITALS: BP 105/70; PULSE 75; RESP 17; TEMP 36.1; O2SAT 98; BMI 18.3
--- NOTE | 2022-06-04 09:32 | ED.GENADULT ---
HPI - General Adult General Chief complaint: Nausea/Vomiting/Diarrhea Stated complaint: Abd pain/Vomiting seen here 06/02 Time Seen by Provider: 06/04/22 09:32 Source: patient Mode of arrival: ambulatory Limitations: no limitations History of Present Illness HPI narrative: Patient is a 26 year old assigned female at with a history of GERD presenting to the emergency department today with nausea and vomiting. Patient states that this all started 2 days ago after she ate some [employer], she was evaluated here and felt better but is now back to feeling how she did before. Patient denies any dizziness, lightheadedness, fever, chills, blurry vision, double vision, loss of vision, chest pain, difficulty breathing, shortness of breath, back pain, night sweats, pain with urination, increased urinary frequency, increased urinary urgency, blood in her urine or stool, syncope or a near syncopal episode, recent trauma or falls, bowel incontinence, bladder incontinence, bowel retention, bladder retention, or any other complaints at this time. Onset (ago): day(s) (3) Location: abdomen Radiation: non-radiation Severity: mild Severity scale (1-10): 2 Quality: aching and dull Pain Consistency: constant Relieving factors: none Exacerbating factors: none Associated symptoms: nausea/vomiting Treatments prior to arrival: none Related Data Home Medications Medication Instructions Recorded Confirmed famotidine 20 mg tablet 20 mg PO BEDTIME 11/19/19 01/12/21 ondansetron 4 mg disintegrating 4 mg PO Q8H 11/19/19 01/12/21 tablet Previous Rx's Medication Instructions Recorded peg-electrolyte solution 420 gram 240 ml PO Q10M #4,000 mL 11/19/19 oral solution (TriLyte With Flavor Packets) prochlorperazine maleate 5 mg 5 mg PO TID PRN nausea and 11/19/19 tablet (Compazine) vomiting #60 tabs polyethylene glycol 3350 17 238 g PO ONCE 1 day #238 grams 04/18/20 gram/dose oral powder (Miralax) diazepam 10 mg tablet (Valium) 10 mg PO TID PRN muscle spasm #10 01/09/21 tabs ibuprofen 800 mg tablet 800 mg PO Q8H PRN pain #14 tabs 01/09/21 prednisone 20 mg tablet 40 mg PO DAILY rash 5 days #10 tabs 01/09/21 colesevelam 625 mg tablet (WelChol) 1,250 mg PO DAILY #60 tabs 03/20/21 pantoprazole 40 mg tablet,delayed 40 mg PO BID #60 tabs 05/29/21 release ondansetron 4 mg disintegrating 4 mg PO Q6H PRN nausea and 06/02/22 tablet vomiting #10 tabs metoclopramide HCl 10 mg tablet 10 mg PO Q6H PRN nausea and 06/04/22 (Reglan) vomiting #7 tabs Allergies Allergy/AdvReac Type Severity Reaction Status Date / Time No Known Allergies Allergy Verified 06/02/22 10:04 [No Known Allergies*] Review of Systems Constitutional: Constitutional: Reports no additional constitutional complaints, Denies chills, Denies fever(s) and Denies night sweats Eyes: Eyes: Reports no additional eye complaints, Denies blurry vision, Denies change in vision, Denies diplopia, Denies eye discharge, Denies loss of vision and Denies eye pain ENT: Denies dizziness Cardiovascular: Cardiovascular: Reports no additional cardiovascular complaints, Denies chest pain, Denies lightheadedness, Denies Loss of Consciousness and Denies dyspnea Respiratory: Respiratory: Reports no additional respiratory complaints and Denies dyspnea Gastrointestinal: Gastrointestinal: Reports no additional gastrointestinal complaints, Reports abdominal pain, Denies melena, Denies hematochezia, Denies change in bowel habits, Denies change in stool character, Reports nausea and Reports vomiting Genitourinary: Genitourinary: Denies hematuria, Denies urinary frequency, Denies dysuria, Denies urinary incontinence, Denies urinary hesitancy and Denies urinary urgency Musculoskeletal: Musculoskeletal: Reports no additional musculoskeletal complaints, Denies numbness and Denies tingling Neurologic: Denies dizziness, Denies loss of vision, Denies numbness and Denies tingling Psychiatric: Psychiatric: Reports no additional psychiatric complaints Endocrine: Endocrine: Reports no additional endocrine complaints Hematologic/Lymphatic: Hematologic/Lymphatic: Reports no additional hematologic/lymphatic complaints Allergic/Immunologic: Allergic/Immunologic: Reports no additional allergic/immunologic complaints PMFSH Past Medical History Attestation statement: The following information was validated with the patient. Source: old records reviewed and nursing notes reviewed Medical History Nausea & vomiting Surgical History History of appendectomy History of colonoscopy Hx of endoscopy Family History Family History Father Alive and well Mother Alive and well Social History Social History Household Members: Spouse Alcohol intake: never Substance Use Type: Marijuana Advance Directives: No Advance Directives Information Provided: No Physical Exam ED Vital Signs: Vital Signs - 24 hr 06/04/22 09:09 06/04/22 11:31 Temperature 97.0 F Pulse Rate 75 74 Respiratory Rate 17 14 Blood Pressure 105/70 92/58 L Pulse Oximetry 98 99 Oxygen Delivery Method Room Air Room Air BMI result Body Mass Index 18.3 Const General: cooperative, no acute distress, alert and awake Nutritional Appearance: well nourished Orientation/consciousness: patient oriented x3 Limitations: no limitations HENMT Head: Yes normal to inspection and Yes atraumatic Ears: hearing grossly normal bilaterally and external ears normal General nose exam: Normal external nose present, no nasal discharge noted and no epistaxis Face and sinus: Yes normal facial exam, No abrasion and No laceration Mouth: Normal oral and palatal mucosa present, no drooling and no muffled voice Eyes General: appearance normal, both eyes and all related structures Periorbital: periorbital findings normal Eyelids: Yes eyelids normal Conjunctivae: conjunctivae normal Pupils: Equal, round and reactive pupils present EOM: EOMs intact bilaterally Neck Neck: Yes normal visual inspection, Yes full ROM and Yes no lymphadenopathy Chest Chest palpation & inspection: normal inspection of the chest Resp Effort & Inspection: normal respiratory effort and able to speak in complete sentences Auscultation: clear to auscultation bilaterally Cardio Rate: regular rate Rhythm: regular rhythm GI Inspection: Yes normal to inspection Palpation (GI): Soft to palpation, not firm, nontender, no guarding and not rigid Neuro General: patient oriented x3 and moves all extremities Cranial nerves: Yes Equal, round and reactive pupils present Cognition (Neuro): normal cognition Motor exam (neuro): 5/5 motor strength present throughout Sensory Exam: Normal double simultaneous stimulation for sensation Coordination: [id number] test normal Extrem General: Yes normal to inspection, Yes full ROM and Yes capillary refill normal Psych Appearance: grossly normal Mental Status: mental status grossly normal Affect: normal affect Attitude: cooperative Thought process: Normal thought process present Thought content: Normal thought content present Insight: Good insight present (Psych) Medications Administered Generic Name Dose Route Start Last Admin Trade Name Norma PRN Reason Stop Dose Admin Sodium Chloride 1,000 mls @ 999 mls/hr 06/04/22 11:30 06/04/22 11:29 Ns IV 06/04/22 12:30 999 mls/hr .Q1H1M KALI Administration Discontinued Medications Generic Name Dose Route Start Last Admin Trade Name Freq PRN Reason Stop Dose Admin Sodium Chloride 1,000 mls @ 999 mls/hr 06/04/22 09:45 06/04/22 11:29 Ns IV 06/04/22 10:45 Infused .Q1H1M KALI Infusion Metoclopramide HCl 10 mg 06/04/22 09:35 06/04/22 10:07 Metoclopramide Hcl 10 Mg/2 Ml Vial IVPUSH 06/04/22 09:36 10 mg ONCE ONE Administration Ondansetron HCl 4 mg 06/04/22 09:15 06/04/22 10:07 Ondansetron Odt 4 Mg Tab.Rapdis SUBLINGUAL 06/04/22 09:16 4 mg ONCE ONE Administration Pantoprazole Sodium 40 mg 06/04/22 09:35 06/04/22 10:07 Pantoprazole Sodium 40 Mg/10 Ml Vial IVPUSH 06/04/22 09:36 40 mg ONCE ONE Administration Medical Decision Making Medical Decision Making [facility] Narrative: Patient is a 26 year old assigned female at with a history of GERD presenting to the emergency department today with vague abdominal pain, nausea, and vomiting. Patient's physical exam was unremarkable. Patient's blood work was unremarkable. Patient's urine showed no acute process. I explained my physical exam findings as well as all test results to the patient. I answered all questions asked by the patient. Patient received IV fluids and Reglan which she stated helped her symptoms significantly. I stressed the importance of the patient taking her medication as prescribed. I stressed the importance of the patient following up with her primary care provider and a GI specialist. I stressed the importance of the patient returning to the emergency department immediately if her symptoms were to worsen or if she were to develop any dizziness, shortness of breath, difficulty breathing, chest pain, blurry vision, loss of vision, nausea, vomiting, abdominal pain, fever, chills, back pain, or any other complaints. Patient verbalized agreement and understanding with this treatment plan and discharge. Differential Diagnosis Differential Diagnoses: The differential diagnosis associated with the presentation includes nausea, vomiting, gastroenteritis Lab Data MDM Lab Attestation statement: I reviewed the patient's lab results. 06/04/22 10:02 06/04/22 10:02 Labs: Lab Results 06/04/22 06/04/22 06/04/22 Range/Units 10:02 10:02 10:02 WBC 5.2 (4.8-10.8) X10*3/uL RBC 4.39 (4.20-5.50) X10*6/uL Hgb 13.2 (12.0-16.0) g/dl Hct 40.6 (37.0-47.0) % MCV 92.5 (80.0-98.0) fL MCH 30.1 (27.0-33.0) pg MCHC 32.5 (31.0-35.0) g/dl RDW 12.2 (11.0-16.0) % Plt Count 222 (160-400) X10*3/uL MPV 9.7 (9.4-12.3) fL Immature Gran % (Auto) 0.2 (0.0-0.4) % Neut % (Auto) 63.2 (45-73) % Lymph % (Auto) 26.7 (20-40) % [place] % (Auto) 6.4 (2-11) % Eos % (Auto) 2.9 (0-4) % Baso % (Auto) 0.6 (0-2) % Lymph # (Auto) 1.4 (1.2-4.9) X10*3/uL [place] # (Auto) 0.3 (0.1-1.2) X10*3/uL Eos # (Auto) 0.2 (0.0-0.4) X10*3/uL Baso # (Auto) 0.0 (0.0-0.2) X10*3/uL Abs Immat Gran (auto) 0.01 (0.00-0.03) X10*3/uL Absolute Neuts (auto) 3.3 (2.0-8.3) x10*3/uL Absolute Nucleated RBC 0.000 (0.0-0.012) X10*3/uL Nucleated RBC % (auto) 0.0 (0.0-0.2) /100WBC Sodium 139 (135-145) mmol/L Potassium 4.0 (3.3-5.1) mmol/L Chloride 108 (96-108) mmol/L Carbon Dioxide 25 (22-29) mmol/L Anion Gap 10 L (12-20) BUN 8 L (9-16) mg/dL Creatinine 0.76 (0.5-1.4) mg/dL Estim Creat Clear Calc 93.5 Estimated GFR > 60 Random Glucose 82 (60-115) mg/dL Calcium 9.0 (8.4-10.2) mg/dL Total Bilirubin 1.0 (0.0-1.0) mg/dL Direct Bilirubin 0.3 (0.0-0.5) mg/dL AST 22 (5-31) U/L ALT 17 (0-31) U/L Alkaline Phosphatase 56 (39-117) U/L Total Protein 7.1 (6.5-8.0) g/dL Albumin 4.2 (3.5-5.0) g/dL Lipase 15 (8-78) U/L Urine Color Yellow Urine Appearance Clear Urine pH 5.5 (5.0-9.0) Ur Specific [place] 1.020 (1.005-1.025) Urine Protein Negative (Neg-Trace) mg/dL Urine Glucose (UA) Negative (Negative) mg/dL Urine Ketones 15 (Negative) mg/dL Urine Blood Negative (Negative) Urine Nitrite Negative (Negative) Ur Leukocyte Esterase Negative (Negative) Discharge Plan Discharge Clinical Impression: Nausea & vomiting Patient Disposition: Home, Self-Care Instructions: Acute Nausea and Vomiting (ED) Additional Instructions: Follow up with your primary care provider and a GI specialist. Return to the emergency department immediately if your symptoms worsen or if you develop any dizziness, shortness of breath, difficulty breathing, chest pain, blurry vision, loss of vision, nausea, vomiting, abdominal pain, fever, chills, back pain, or any other complaints. Prescriptions: New metoclopramide HCl [Reglan] 10 mg tablet 10 mg PO Q6H PRN (Reason: nausea and vomiting) Qty: 7 0RF No Action colesevelam [WelChol] 625 mg tablet 1,250 mg PO DAILY Qty: 60 1RF pantoprazole 40 mg tablet,delayed release (DR/EC) 40 mg PO BID Qty: 60 5RF ibuprofen 800 mg tablet 800 mg PO Q8H PRN (Reason: pain) Qty: 14 0RF prednisone 20 mg tablet 40 mg PO DAILY 5 Days Qty: 10 0RF diazepam [Valium] 10 mg tablet 10 mg PO TID PRN (Reason: muscle spasm) Qty: 10 0RF ondansetron 4 mg tablet,disintegrating 4 mg PO Q6H PRN (Reason: nausea and vomiting) Qty: 10 0RF ondansetron 4 mg tablet,disintegrating 4 mg PO Q8H famotidine 20 mg tablet 20 mg PO BEDTIME prochlorperazine maleate [Compazine] 5 mg tablet 5 mg PO TID PRN (Reason: nausea and vomiting) Qty: 60 3RF peg-electrolyte soln [TriLyte With Flavor Packets] 420 gram recon soln 240 ml PO Q10M Qty: 4000 0RF Rx Instructions: until fecal effluent is clear; do not exceed a total volume of 2,000 mL polyethylene glycol 3350 [Miralax] 17 gram/dose powder 238 g PO ONCE 1 Days Qty: 238 0RF Rx Instructions: Take as directed by mouth, bowel prep Referrals: [facility] [place] [facility] [Provider Group] (Call to establish and follow up with a GI specialist.) Veronica Carney MD [Primary Care Provider] - Stand Alone Forms: Work/School Release Print Language: Sami
[2022-06-04 10:06] LABS: MANUAL DIFF FLAG NO
[2022-06-04] MEDS: Metoclopramide HCl 10 MG/2 ML VIAL IVPUSH (10:07)
[2022-06-04] MEDS: 0.9 % Sodium Chloride 1,000 ML 999 ML IV ×2 (10:07→11:29)
[2022-06-04] MEDS: Pantoprazole Sodium 40 MG/10 ML VIAL IVPUSH (10:07)
[2022-06-04] MEDS: Ondansetron ODT 4 MG TAB.RAPDIS SUBLINGUAL (10:07)
[2022-06-04 10:10] LABS: Appearance Urine Clear; Color Urine Yellow; Glucose Urine UA Negative (Negative); Leukocyte Esterase Urine Negative (Negative); Nitrite Urine Negative (Negative); PH 5.5 (5.0-9.0); Urine Blood Negative (Negative); Urine Ketones 15 mg/dL (Negative); Urine Protein Negative (Neg-Trace)
[2022-06-04 10:13] LABS: Basophils Percent Auto 0.6 % (0-2); Eosinophils Absolute Auto 0.2 X10*3/uL (0.0-0.4); Eosinophils Percent Auto 2.9 % (0-4); Hematocrit 40.6 % (37.0-47.0); Hemoglobin 13.2 g/dl (12.0-16.0); Imm Gran Abs Auto 0.01 X10*3/uL (0.00-0.03); Imm Gran Pct Auto 0.2 % (0.0-0.4); Lymphocytes Absolute Auto 1.4 X10*3/uL (1.2-4.9); Lymphocytes Percent Auto 26.7 % (20-40); Mean Corpuscular HGB Conc 32.5 g/dl (31.0-35.0); Mean Corpuscular Hemoglobin 30.1 pg (27.0-33.0); Mean Corpuscular Volume 92.5 fL (80.0-98.0); Mean Platelet Volume 9.7 fL (9.4-12.3); Monocytes Absolute Auto 0.3 X10*3/uL (0.1-1.2); Monocytes Percent Auto 6.4 % (2-11); Neutrophils Absolute Auto 3.3 x10*3/uL (2.0-8.3); Neutrophils Percent Auto 63.2 % (45-73); Platelet Count 222 X10*3/uL (160-400); Red Blood Count 4.39 X10*6/uL (4.20-5.50); Red Cell Distribution Width 12.2 % (11.0-16.0); White Blood Count 5.2 X10*3/uL (4.8-10.8)
--- NOTE | 2022-06-04 10:57 | PC.NURSE ---
NO VOMITING, IV FLUIDS INFUSING. AWAITING LAB RESULTS
[2022-06-04 11:23] LABS: Alanine Aminotransferase 17 U/L (0-31); Albumin Level 4.2 g/dL (3.5-5.0); Alkaline Phosphatase 56 U/L (39-117); Anion Gap 10 (12-20); Aspartate Amino Transferase 22 U/L (5-31); Bilirubin Direct 0.3 mg/dL (0.0-0.5); Blood Urea Nitrogen 8 mg/dL (9-16); Carbon Dioxide 25 mmol/L (22-29); Chloride 108 mmol/L (96-108); Creatinine Clr Calc Pharmacy 93.5; Estimated Glomerular Filt Rate > 60; Glucose Random 82 mg/dL (60-115); Lipase 15 U/L (8-78); Sodium 139 mmol/L (135-145); Total Protein 7.1 g/dL (6.5-8.0)
--- NOTE | 2022-06-04 11:30 | PC.NURSE ---
PO CHALLENGE NO VOMITING REPORTS FEELING BETTER
[2022-06-04 11:31] VITALS: BP 92/58; PULSE 74; RESP 14; O2SAT 99
== END 2022-06-04 12:33 | disposition home or self-care (01) ==
PROVIDERS: Emergency Provider Student in an Organized Health Care Education/Training Program; PCP Pediatrics
DX: R11.2 Nausea with vomiting, unspecified (principal); R19.7 Diarrhea, unspecified; Z79.899 Other long term (current) drug therapy
CPT/HCPCS: 36415; 80053; 81003; 82248; 83690; 85025; 96361; 96374; 96375; 99284; J2765

== ENCOUNTER 2023-09-08 12:39 | Outpatient (REF) | payer OTHER, SELFPAY ==
--- NOTE | ~2023-09-08 | XR_ITS ---
EXAMINATION: XR CERVICAL SPINE, 5 VIEWS CLINICAL INFORMATION: Cervicothoracic. COMPARISON: None available. TECHNIQUE: Frontal, odontoid, bilateral oblique and lateral views are obtained. FINDINGS: Vertebral body heights and alignment are normal. The disc spaces are well-maintained. No acute fracture or spondylolisthesis is seen. The dens and C7-T1 interface are normal. The posterior elements are intact. The bilateral neural foramina are patent on the oblique views. There is no prevertebral soft tissue swelling. XR/XR cervical spine 5V IMPRESSION: Negative examination.
== END 2023-09-08 12:40 | disposition home or self-care (01) ==
LOC: HO.XRAY 12:39
PROVIDERS: PCP Pediatrics; Visit Provider Family Medicine
DX: M54.12 Radiculopathy, cervical region (principal)
CPT/HCPCS: 72050

== ENCOUNTER 2023-12-10 11:00 | Outpatient (RCR) | payer MEDICAID, SELFPAY | END 2024-01-07 11:44 | disposition home or self-care (01) | LOC: HO.PT 11:00 | PROVIDERS: PCP Pediatrics; Visit Provider Family Medicine | DX: M54.12 Radiculopathy, cervical region (principal) | CPT/HCPCS: 97014; 97110; 97112; 97140; 97161; 97530 ==

== ENCOUNTER → 2023-12-10 18:48 | Outpatient (BNV) | payer MEDICAID, SELFPAY | PROVIDERS: PCP Family Medicine; Visit Provider Radiology Diagnostic Radiology | DX: M54.12 Radiculopathy, cervical region (principal) | CPT/HCPCS: 72141 ==

== ENCOUNTER 2023-12-10 18:49 | Outpatient (REF) | payer MEDICAID, SELFPAY ==
--- NOTE | ~2023-12-10 | MR_ITS ---
EXAMINATION: MR CERVICAL SPINE WITHOUT CONTRAST CLINICAL INFORMATION: Left-sided pain. COMPARISON: None available. TECHNIQUE: MRI of the cervical spine was obtained using routine sequences without contrast. FINDINGS: Submitted for interpretation on December 12, 2023. Craniocervical junction is intact. No bone marrow STIR signal abnormality. No acute fracture or listhesis. Spinal cord demonstrates normal caliber and signal. C2-3: Normal. C3-4: Normal. C4-5: Normal. C5-6: Normal. C6-7: Normal. C7-T1: Bilateral perineural cysts. No herniated disc. No neuroforamina stenosis. No compression upon neural elements. No prevertebral compartment hematoma, mass or fluid collection. Flow-void signal within the mean vessels is normal. Left vertebral artery is dominant. MR/MR cervical spine wo con IMPRESSION: No acute fracture or listhesis. No cord compression,. No cord edema and or myelopathy. Electronically signed by: Greg Storey MD 12/12/2023 02:24 PM EDT
== END 2023-12-10 18:50 | disposition home or self-care (01) ==
LOC: HO.MRI 18:49
PROVIDERS: PCP Family Medicine; Visit Provider Family Medicine
DX: M54.12 Radiculopathy, cervical region (principal)
CPT/HCPCS: 72141

== ENCOUNTER 2024-01-02 10:32 | Outpatient (AMB) | payer MEDICAID, SELFPAY ==
--- NOTE | 2024-01-02 10:35 | A.OFFVIS_ITS ---
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 Denies any recent trauma, injury or falls. She is right hand dominant. 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 Neck pain has been resistant to conservative therapy, including physical therapy, methocarbamol, NSAIDs, and heat. Patient is concerned for the findings of a bilateral perineural cysts on recent cervical spine MRI without compression upon neural elements. Pain has been intermittent for 4 months and is rated at 5-10/10. Neck pain is localized to left side and extends into left occipital region with tenderness with stabbing and sharp sensations. She reports recent increase in migraine headaches with neck pain. Denies any previous Neurology evaluation for migraine headaches with photosensitivity and phonophobia. Denies any fever or chills, dizziness, malaise, weight loss, weakness, numbness, significant vision changes, trouble concentrating or speaking, sudden changes in migraine attack frequency or severity, confusion, balance issues, weakness, bladder or bowel dysfunction, or saddle anesthesia. Oswestry Neck Disability Score=19 (moderate disability) Location: Left sided head and neck Duration: 4 months Characteristics of symptom or complaint: Stabbing, sharp, throbbing, pinching, tingling, dull, sore, hurting, aching Aggravating or associated factors: Movement, looking down, lifting, sudden movement Relieving factors: Heat, methocarbamol, Naproxen Treatment: PT, cervical spine MRI [facility] Medical History (Updated 01/04/24 @ 22:29 by DWAYNE Bell) Bile acid esophageal reflux Patellofemoral syndrome of right knee Quadriceps tendonitis Kidney stones Migraine headache Nausea & vomiting Surgical History History of colonoscopy Hx of endoscopy History of appendectomy Family History Father Alive and well Mother Alive and well Social History Household Members: Spouse Alcohol intake: never Patient Tobacco Use Status: Never used Tobacco Substance Use Type: Marijuana Review of Systems Const All systems reviewed & are unremarkable except as noted in HPI and below ENT Reports Normal hearing present Neuro Reports Normal hearing present and Denies Sensory deficit (Neuro) Physical Exam Vital Signs: Last Vital Signs Pulse 80 01/02/24 10:39 BP 136/78 01/02/24 10:39 Pulse Ox 99 01/02/24 10:39 Oxygen Delivery Method Room Air 01/02/24 10:39 BMI result Body Mass Index 19.1 General: Appears afebrile. Alert and oriented. Mood and affect appropriate. Follows and participates in conversation appropriately. Respiratory effort is unlabored. No cough. Able to transition from sit to stand unassisted. Ambulates with bilaterally normal heel strike and toe off. HEENT Head: Yes normal to inspection, Yes No palpable skull fracture present, Yes normocephalic, Yes atraumatic and Yes occipital foramen tenderness (left) Eyes Pupils: Equal, round and reactive pupils present Neck Neck: Yes full ROM, Yes no lymphadenopathy, Yes no meningeal signs, Yes supple, No anterior neck swelling, No torticollis, Yes no JVD, No prominent supraclavicular fat pad and No prominent dorsocervical fat pad Back/Spine/Pelvis Cervical Spine: normal cervical lordosis, cervical ROM normal, No collar present, No Lhermitte's sign positive, cervical muscular tenderness, pain with cervical ROM (with bending, flexion and lateral rotation to the left), No Cervical spine scars present, cervical spasm, No Cervical spine tenderness and No step off deformity Neuro General: Normal light touch and pain sensation, no meningeal signs, CN's II-XI intact bilaterally and deep tendon reflexes 2+ bilaterally Cranial nerves: Yes Equal, round and reactive pupils present, Yes Nystagmus not present, Yes Normal hearing present and Yes Ability to bilaterally elevate shoulders present Cognition (Neuro): normal cognition Gait exam (Neuro): Normal gait present Motor exam (neuro): 5/5 motor strength present throughout, no tremor noted and Motor abnormalities not present Sensory Exam: No Sensory deficit (Neuro) Results Reviewed Results Reviewed: MR CERVICAL SPINE WITHOUT CONTRAST 12/10/23 CLINICAL INFORMATION: Left-sided pain. COMPARISON: None available. FINDINGS: Submitted for interpretation on December 12, 2023. Craniocervical junction is intact. No bone marrow STIR signal abnormality. No acute fracture or listhesis. Spinal cord demonstrates normal caliber and signal. C2-3: Normal. C3-4: Normal. C4-5: Normal. C5-6: Normal. C6-7: Normal. C7-T1: Bilateral perineural cysts. No herniated disc. No neuroforamina stenosis. No compression upon neural elements. No prevertebral compartment hematoma, mass or fluid collection. Flow-void signal within the mean vessels is normal. Left vertebral artery is dominant. IMPRESSION: No acute fracture or listhesis. No cord compression,. No cord edema and or myelopathy. Assessment & Plan Assessment & Plan (1) Cervicogenic headache: Code(s): G44.86 - Cervicogenic headache Category: Medical (2) Migraine headache: Code(s): G43.909 - Migraine, unspecified, not intractable, without status migrainosus Category: Medical (3) Unilateral occipital headache: Code(s): R51.9 - Headache, unspecified Category: Medical (4) Perineural cysts: Code(s): G96.191 - Perineural cyst Category: Medical Plan MRI head and brain to further evaluate worsening migraine headaches. Discussed potential migraine triggers and emphasized importance of adequate hydration, well-balanced diet, stress management, good posture, sleep hygiene and avoiding known migraine triggers. Patient was supplied with migraine headache diary today. Scripts provided for riboflavin, magnesium glycinate, and tizanidine. Side effects and precautions were discussed with patient. Discussed interventional treatments for cervicogenic neck pain with headaches including occipital nerve blocks in cervical medial branch blocks for potential therapeutic injections, Sprint PNS trial or RFA procedures. Informational pamphlets were provided to patient today. She would like to hold off on interventions until head/brain MRI is complete. All questions and concerns have been answered and patient agreed with the treatment plan. Follow-up for MRI results and sooner as needed. Orders: Orders MR head/brain wo con 01/02/24 G43.909 - Migraine, unspecified, not intractable, without status migrainosus, G44.86 - Cervicogenic headache, R51.9 - Headache, unspecified Referrals Neurology Referral G43.909 - Migraine, unspecified, not intractable, without status migrainosus, G44.86 - Cervicogenic headache, R51.9 - Headache, unspecified Medications: New magnesium glycinate 200 mg (2 x 100 mg) PO DAILY 30 days 60 tabs 0RF migraine headaches G43.909 - Migraine, unspecified, not intractable, without status migrainosus riboflavin (vitamin B2) 400 mg PO DAILY 30 days 30 tabs 0RF migraine headaches G43.909 - Migraine, unspecified, not intractable, without status migrainosus tizanidine 2 mg PO TID 30 days PRN 90 tabs 0RF muscle spasticity G43.909 - Migraine, unspecified, not intractable, without status migrainosus Coding Level of Care Code New Pt Level 4 (96645) Complex EM visit Add On G2211 Diagnoses Cervicogenic headache G44.86 Migraine headache G43.909 Unilateral occipital headache R51.9 Perineural cysts G96.191
[2024-01-02 10:39] VITALS: BP 136/78; PULSE 80; O2SAT 99; BMI 19.1
== END 2024-01-02 11:15 | disposition home or self-care (01) ==
PROVIDERS: PCP Family Medicine; Referring Provider Family Medicine; Visit Provider Nurse Practitioner Family
DX: G44.86 Cervicogenic headache (principal); G43.909 Migraine, unspecified, not intractable, without status migrainosus; R51.9 Headache, unspecified; G96.191 Perineural cyst
CPT/HCPCS: 99204

== ENCOUNTER → 2024-01-02 10:32 | Outpatient (BNVA) | payer MEDICAID, SELFPAY | PROVIDERS: PCP Family Medicine; Referring Provider Family Medicine; Visit Provider Nurse Practitioner Family | DX: G96.191 Perineural cyst (principal); M54.2 Cervicalgia; G44.86 Cervicogenic headache; G43.909 Migraine, unspecified, not intractable, without status migrainosus | CPT/HCPCS: 99212 ==

== ENCOUNTER 2024-01-23 18:08 | Outpatient (REF) | payer MEDICAID, SELFPAY ==
--- NOTE | ~2024-01-23 | MR_ITS ---
EXAMINATION: MR BRAIN WITHOUT CONTRAST CLINICAL INFORMATION: Headache. COMPARISON: None available. TECHNIQUE: MRI of the brain was obtained using routine sequences without contrast. FINDINGS: There is no area of abnormal restricted diffusion to indicate an acute/subacute infarction. There is no intracranial hemorrhage. There is no midline shift or mass effect. There is no extra-axial fluid collection. The ventricles are normal in size. The flow voids at the base of the brain are intact. Midline structures are normal in appearance. The cerebellar tonsils are normally positioned. There is mild mucosal thickening within the right maxillary sinus. Mastoid air cells are clear. MR/MR head/brain wo con IMPRESSION: Normal noncontrast brain MRI. Electronically signed by: Edgar Victor DO 01/23/2024 09:17 PM MARIA TERESA
== END 2024-01-23 18:09 | disposition home or self-care (01) ==
LOC: HO.MRI 18:08
PROVIDERS: PCP Family Medicine; Visit Provider Nurse Practitioner Family
DX: G43.909 Migraine, unspecified, not intractable, without status migrainosus (principal)
CPT/HCPCS: 70551

== ENCOUNTER 2024-02-16 16:03 | Outpatient (RCR) | payer MEDICAID, SELFPAY | END 2024-03-18 10:42 | disposition home or self-care (01) | LOC: HO.PT 16:03 | PROVIDERS: PCP Family Medicine; Visit Provider Physician Assistant | DX: M54.81 Occipital neuralgia (principal) | CPT/HCPCS: 97161 ==